=== PATIENT | female | born 1970 | race African-American/Black ===

== ENCOUNTER 2021-11-01 08:40 | Emergency (ER) | payer BC, OTHER ==
[~2021-11-01] VITALS: Ht 170.2 cm; Wt 94.8 kg
[~2021-11-01 08:40] MED LIST: ALBUAER3 IN; FLUO20CA19 PO; IBUP1CAP5 PO; PRO125RS RE
[2021-11-01] MEDS ORDERED: fentaNYL CITRATE 100 MCG/2 ML VL IV ONE (09:00)
[2021-11-01] MEDS ORDERED: IOHEXOL 350 MG/ML 100ML IJ ONE (10:23)
[2021-11-01 10:24] LABS: Basophils # (auto) 0 10 ^3/uL (0-0.2); Basophils % (auto) 0.4 % (0.0-2.0); Eosinophils # (auto) 0 10 ^3/uL (0-0.8); Eosinophils % (auto) 0.2 % (0.0-7.0); Hematocrit 43.1 % (36.0-46.0); Hemoglobin 14.3 g/dL (12.2-16.2); Lymphocytes % (auto) 14.5 % (10.0-50.0); Mean Corpuscular Hemoglobin 32.1 pg (28.0-32.0); Mean Corpuscular Hgb Conc. 33.2 g/dL (32.0-36.0); Mean Corpuscular Volume 96.7 fL (80.0-100.0); Monocytes # (auto) 0.5 10 ^3/uL (0-1.3); Monocytes % (auto) 6.9 % (0.0-12.0); Neutrophils # (auto) 5.4 10 ^3/uL (1.6-8.6); Nucleated Red Blood Cells % 0.1 %; Red Blood Cells 4.46 10^6/uL (4.0-5.20); Red Cell Distribution Width 13.2 % (11.8-14.3); White Blood Cell 6.9 10^3/uL (4.4-10.8)
[2021-11-01 10:28] LABS: Amylase 20 U/L (25-115); Lipase 50 U/L (73-393)
[2021-11-01 10:32] LABS: Albumin 3.6 g/dL (3.4-5.0); BUN/Creatinine Ratio 20.7; Bilirubin, Total 0.2 mg/dL (0.2-1.0); Calcium 8.4 mg/dL (8.5-10.1); Total Protein 7.3 g/dL (6.4-8.2)
[2021-11-01] MEDS ORDERED: HYDR-4798 PO (11:55)
[2021-11-01 12:21] VITALS: BP 151/74
== END 2021-11-01 12:22 | disposition home or self-care (01) ==
LOC: ER 08:40 → EDBD 08:40 → ER 12:22
DX: K57.30 Diverticulosis of large intestine without perforation or abscess without bleeding (principal); R07.89 Other chest pain; J45.909 Unspecified asthma, uncomplicated; E78.5 Hyperlipidemia, unspecified; Z90.710 Acquired absence of both cervix and uterus; Z90.89 Acquired absence of other organs
CPT/HCPCS: 36415; 71260; 74177; 80053; 82150; 83690; 85025; 93005; 96374; 99285; J3010; Q9967